=== PATIENT | male | born 1995 | race Hispanic/Latino ===

== ENCOUNTER 2024-02-29 20:21 | Emergency (ER) | payer SELFPAY ==
[2024-02-29 21:05] LABS: Hematocrit 42.6 % (42.0-52.0); Hemoglobin 14.4 g/dL (14.0-18.0); Mean Corpuscular HGB CONC 33.8 g/dL (32.0-36.0); Mean Corpuscular Hemoglobin 27.2 pg (27.0-31.0); Mean Corpuscular Volume 80.5 fL (78.0-98.0); Platelet Count 163 10x3/uL (130-400); RBC Distribution Width 13.8 % (11.5-14.5); Red Blood Cell (RBC) Count 5.29 mill/uL (4.70-6.10)
[2024-02-29 21:25] LABS: Band 1 % (5-11); Eosinophils 5 % (0-10); Large Platelets 9.1 % (0-5); Lymphocytes 24 % (21-51); Monocytes 7 % (0-10); Neutrophil 58 % (42-75); Platelet Adequacy Comment Platelets Normal; Reactive Lymphocytes 3 % (0-10); Smudge Cells 5.1 %
[2024-02-29 21:31] LABS: ALT (SGPT) 38 U/L (8-55); AST (SGOT) 28 U/L (5-34); Albumin 4.2 g/dL (3.5-5.0); Alkaline Phosphatase 74 U/L (40-110); Anion Gap 15 mmol/L (10-20); BUN (Urea Nitrogen) 15 mg/dL (8.9-20.6); Bilirubin, Total 0.4 mg/dL (0.2-1.2); Calc. Creatinine Clearance 0 mL/min (70-130); Carbon Dioxide 21 mmol/L (22-29); Chloride 105 mmol/L (98-107); Estimated GFR 122; Globulin 3.5 g/dL (2.4-3.5); Glucose 113 mg/dL (70-105); Potassium 3.3 mmol/L (3.5-5.1); Protein, Total 7.7 g/dL (6.0-8.3); Sodium 138 mmol/L (136-145)
[2024-02-29 21:36] LABS: Troponin I 0.011 ng/mL (< 0.028)
[2024-02-29] MEDS ORDERED: Ibuprofen 800 MG TAB ONE (23:29)
== END 2024-02-29 23:39 | disposition home or self-care (01) ==
LOC: ERS 20:21
DX: R07.81 Pleurodynia (principal)
CPT/HCPCS: 36415; 71045; 80053; 84484; 85025; 93005